=== PATIENT | male | born 1980 | race African-American/Black ===

== ENCOUNTER 2019-07-24 17:32 | Emergency (ER) | payer OTHER ==
[2019-07-24] MEDS ORDERED: Morphine 4 MG/ML VIAL ONE ×2 (17:42→18:20)
--- NOTE | 2019-07-24 18:04 | RAD ---
Left elbow:4 views INDICATIONS: Injury with pain COMPARISON: None FINDINGS: No evidence of fracture or osseous abnormality No evidence of joint effusion No soft tissue abnormality. IMPRESSION: No acute finding
--- NOTE | 2019-07-24 18:05 | RAD ---
EXAM: Left forearm: 2 views INDICATIONS: Trauma COMPARISON: None. FINDINGS: No evidence of fracture. IMPRESSION: No acute finding
--- NOTE | 2019-07-24 18:05 | RAD ---
Left wrist:3 views. INDICATIONS:Injury with pain COMPARISON:None FINDINGS: Distal radius and ulna appear unremarkable. Carpals appear normally aligned and intact. Metacarpals appear intact. No soft tissue abnormality identified. IMPRESSION: No acute finding.
--- NOTE | 2019-07-24 18:06 | RAD ---
Portable chest: HISTORY: Trauma COMPARISON: none FINDINGS: Lung owens are clear. Heart and mediastinum appear unremarkable. Vascularity is normal. Visualized osseous structures unremarkable. IMPRESSION: No acute finding
[2019-07-24] MEDS ORDERED: Ketorolac Tromethamine 30 MG/ML VIAL ONE (18:20)
== END 2019-07-24 21:10 | disposition home or self-care (01) ==
LOC: ERS 17:32
DX: S50.12XA Contusion of left forearm, initial encounter (principal); Z87.891 Personal history of nicotine dependence; Z79.899 Other long term (current) drug therapy; V89.2XXA Person injured in unspecified motor-vehicle accident, traffic, initial encounter
CPT/HCPCS: 71045; 96374; 96375; 96376; J1885; J2270

== ENCOUNTER 2022-06-05 19:00 | Outpatient (CLI) | payer BC | END 2022-06-05 19:01 | disposition home or self-care (01) | LOC: SLEEPLAB 19:00 | PROVIDERS: ATTEND Nurse Practitioner Adult Health | DX: G47.33 Obstructive sleep apnea (adult) (pediatric) (principal); R53.83 Other fatigue; R51.9 Headache, unspecified; R06.83 Snoring; I10 Essential (primary) hypertension; G47.10 Hypersomnia, unspecified; G47.00 Insomnia, unspecified; E66.9 Obesity, unspecified; Z68.39 Body mass index [BMI] 39.0-39.9, adult | CPT/HCPCS: 95810 ==

== ENCOUNTER 2024-02-05 01:17 | Inpatient (IN) | payer BC ==
[2024-02-05] MEDS ORDERED: Ondansetron ODT 4 MG TAB PO PRN (01:31)
[2024-02-05 01:56] VITALS: BMI 40.0
[2024-02-05 03:29] LABS: Hematocrit 36.7 % (42.0-52.0); Hemoglobin 12.1 g/dL (14.0-18.0); Mean Corpuscular Hemoglobin 26.9 pg (27.0-31.0); Mean Corpuscular Volume 81.7 fL (78.0-98.0); Mean Platelet Volume 11.1 fL (7.4-10.4); Platelet Count 111 10x3/uL (130-400); RBC Distribution Width 12.4 % (11.5-14.5); Red Blood Cell (RBC) Count 4.49 mill/uL (4.70-6.10)
[2024-02-05 03:46] LABS: Hemoglobin A1c 5.8 % (4.0-6.0)
[2024-02-05 03:51] LABS: Anion Gap 11 mmol/L (10-20); BUN (Urea Nitrogen) 8 mg/dL (8.9-20.6); Calc. Creatinine Clearance 209 mL/min (70-130); Calcium 8.1 mg/dL (7.8-10.44); Carbon Dioxide 26 mmol/L (22-29); Chloride 102 mmol/L (98-107); Estimated GFR 110; Glucose 90 mg/dL (70-105); Lymphocytes 22 % (21-51); Monocytes 18 % (0-10); Neutrophil 60 % (42-75); Platelet Adequacy Comment Platelets Normal; Potassium 2.8 mmol/L (3.5-5.1); RBC Morphology Within Normal Limits; Smudge Cells 21.2 %; Sodium 136 mmol/L (136-145)
[2024-02-05 03:53] LABS: Acetaminophen Less than 10 mcg/mL (10.0-30.0); Alcohol Less than 10.0 mg/dL (Less than 10); Cardiac Risk 5.2 (Less than 4.5); Salicylate Less than 8.0 mg/dL (15.0-30.0)
[2024-02-05] MEDS: Potassium Chloride 20 MEQ TAB PO SCH ×2 (04:52→14:53)
[2024-02-05] MEDS: NIRMATRELVIR 150 MG (X 2)/RITONAVIR 100 MG DOSE PACK PO SCH (06:07)
[2024-02-05] MEDS: Hydrochlorothiazide 25 MG TAB PO SCH (08:36)
[2024-02-05] MEDS: Amlodipine 10 MG TAB PO SCH (08:37)
[2024-02-05] MEDS: Losartan 25 MG TAB PO SCH (08:37)
[2024-02-05 08:46] LABS: Prothrombin Time 13.1 sec (12.0-14.7)
[2024-02-05 08:47] LABS: PTT 43.1 sec (22.9-36.1)
[2024-02-05 10:25] LABS: Manual Diff?? YES
[2024-02-05 11:08] LABS: Band 11 % (5-11); Eosinophils 1 % (0-10); Macrocytosis SLIGHT = 6-15 cells HPF (0-5); Nucleated RBC (Manual Ct) 1 % (0)
[2024-02-05] MEDS ORDERED: Regadenoson 0.4 MG/5 ML SYRINGE ONE (11:41)
[2024-02-05] MEDS: Acetaminophen 500 MG TAB PO PRN (13:36)
[2024-02-05] MEDS: hydrALAZINE 20 MG/ML VIAL SLOW IVP PRN (13:37)
[2024-02-05 13:39] LABS: Anion Gap 12 mmol/L (10-20); BUN (Urea Nitrogen) 9 mg/dL (8.9-20.6); Calc. Creatinine Clearance 170 mL/min (70-130); Calcium 8.5 mg/dL (7.8-10.44); Carbon Dioxide 29 mmol/L (22-29); Chloride 97 mmol/L (98-107); Estimated GFR 93; Glucose 103 mg/dL (70-105); Sodium 135 mmol/L (136-145)
[2024-02-05 14:52] VITALS: BP 134/74; TEMP 98.4
[2024-02-05] MEDS ORDERED: Atorvastatin Calcium 40 MG TAB PO SCH (21:00)
[2024-02-06] MEDS ORDERED: Enoxaparin 40 MG (0.4 mL) SYRINGE SC SCH (09:00)
== END 2024-02-05 16:28 | disposition home or self-care (01) | DRG 179 ==
LOC: 2SW 01:20
PROVIDERS: ADMIT Student in an Organized Health Care Education/Training Program; ATTEND Student in an Organized Health Care Education/Training Program
DX: U07.1 COVID-19 (principal); I10 Essential (primary) hypertension; D70.3 Neutropenia due to infection; R50.81 Fever presenting with conditions classified elsewhere; Z79.899 Other long term (current) drug therapy; Z90.49 Acquired absence of other specified parts of digestive tract
CPT/HCPCS: 36415; 78452; 80048; 80061; 80307; 83036; 83605; 84443; 85025; 85046; 85610; 85730; 87040; 87070; 87086; 93017; A9502; J0360; J2785; J8499